=== PATIENT | female | born 2000 | race Caucasian/White ===

== ENCOUNTER 2019-06-19 09:37 | Emergency (ER) | payer BC ==
[2019-06-19 10:24] VITALS: BP 109/68
--- NOTE | 2019-06-19 10:41 | UC ---
Upper Extremity HPI - HPI Summary HPI Summary: 19-year-old female comes in with a chief complaint of left wrist and elbow pain. Started 2 days ago with wrist pain. Now it extends into the left elbow. Feels a tingling sensation in the left fourth and fifth fingers. Has pain in the lateral aspect of the left elbow. Denies any numbness or tingling in the first second and third fingers. Feels like her wrist extension is weaker than her wrist flexion. No known trauma patient is right-handed. This happened in the past but it usually lasts a shorter period of time. Denies any repetitive motion activities that she can think of. - History of Current Complaint Chief Complaint: UCUpperExtremity Stated Complaint: LEFT ARM PAIN Time Seen by Provider: 06/19/19 10:14 Hx Last Menstrual Period: 06/07/19 Pain Intensity: 6 - Allergies/Home Medications Allergies/Adverse Reactions: Allergies Allergy/AdvReac Type Severity Reaction Status Date / Time No Known Allergies Allergy Verified 06/19/19 10:13 Home Medications: Home Medications Norethindrone-E.estradiol-Iron [Taytulla 1 mg-20 Mcg Capsule] 1 mg PO DAILY 08/07 [History Confirmed 06/19/19] PMH/Surg Hx/FS Hx/Imm Hx Previously Healthy: Yes - Surgical History Surgical History: None - Family History Known Family History: Positive: Non-Contributory - Social History Alcohol Use: Occasionally Substance Use Type: None Smoking Status (MU): Never Smoked Tobacco Review of Systems All Other Systems Reviewed And Are Negative: Yes Constitutional: Positive: Negative Skin: Positive: Negative Eyes: Positive: Negative ENT: Positive: Negative Respiratory: Positive: Negative Cardiovascular: Positive: Negative Gastrointestinal: Positive: Negative Motor: Positive: Other - see hpi Neurovascular: Positive: Other - see hpi Musculoskeletal: Positive: Other: - see hpi Neurological: Positive: Other - see hpi Psychological: Positive: Negative Is Patient Immunocompromised?: No Physical Exam Triage Information Reviewed: Yes Appearance: Well-Appearing, No Pain Distress, Well-Nourished Vital Signs: Initial Vital Signs Temp 98.3 F 06/19/19 10:15 Pulse 85 06/19/19 10:15 Resp 18 06/19/19 10:15 BP 109/68 06/19/19 10:15 Pulse Ox 99 06/19/19 10:15 Vital Signs Reviewed: Yes Eye Exam: Normal Eyes: Positive: Conjunctiva Clear Neck: Positive: Supple Respiratory: Positive: No respiratory distress Musculoskeletal: Positive: Other: - Tender to palpation left wrist. Also tender on the lateral aspect of the left elbow. Elbow wrists fingers have full range of motion. On examination wrist extension is slightly less strong than wrist flexion. Finger abduction is normal. Normal sensation on exam patient reports a tingling sensation in the fifth finger. Normal capillary refill normal radial pulse. Elbow has full range of motion full-strength. Shoulder has full range of motion full-strength. Neurological: Positive: Alert Psychological: Positive: Age Appropriate Behavior Skin Exam: Normal Upper Extremity Course/Dx - Course Course Of Treatment: Director Of Market Intelligence: Jarvis Rodriguez ([id number]) Controls Design Engineer: HAL (HAL) Report Date: 06/19/2019 11:39:00 Report Status: Final Start of Report Content Patient Name: JAZ WEBSTER Medical Record#: [id number] Ordering Physician: Sunny Moran MD Acct.#: [id number] : 09/1999 Age: 19 Sex: F Location: [facility] Exam Date: 06/19/19 1034 ADM Status: REG ER Order Information: WRIST LEFT 3+ VWS Accession Number: [id number] CPT: 78544 Clinical history: Atraumatic pain. COMPARISON: None. TECHNIQUE: 3 radiographic views of the left wrist were obtained. FINDINGS: The soft tissues are unremarkable. The bone mineralization is within normal limits. No fracture is identified. Anatomic alignment is maintained. The joint spaces are preserved. IMPRESSION: No fracture identified. <Electronically signed by Jarvis Rodriguez MD in OV > 06/19/191135 Dictated By: Jarvis Rodriguez MD Dictated Date/Time: 06/19/191134 Transcribed Date/Time: 06/19/191134 Copy to: CC:No Primary Care Phys,NOPCP ; Sunny Moran MD Imaging - [facility] [address] [place] [address] ph [phone]) ph ) ph ([phone]) End of Report Content Director Of Market Intelligence: Jarvis Rodriguez, ([id number]) Controls Design Engineer: HAL, (NUANCE) Report Date: 06/19/2019 11:38:00 Report Status: Final Start of Report Content Patient Name: JAZ WEBSTER Medical Record#: [id number] Ordering Physician: Sunny Moran MD Acct.#: [id number] : 09/1999 Age: 19 Sex: F Location: [facility] Exam Date: 06/19/19 1034 ADM Status: REG ER Order Information: ELBOW LEFT 3+VWS Accession Number: [id number] CPT: 36910 INDICATION: Left elbow pain. TECHNIQUE: 4 views of the left elbow were obtained. FINDINGS: The soft tissues are unremarkable. The bone mineralization is within normal limits. No fracture is identified. Anatomic alignment is maintained. The joint spaces are preserved. IMPRESSION: No fracture identified. _ <Electronically signed by Jarvis Rodriguez MD in OV> 06/19/19 113 Dictated By: Jarvis Rodriguez MD Dictated Date/Time: 06/19/19 113 Transcribed Date/Time: 1133 Copy to: CC:No Primary Care Phys,NOPCP ; Sunny Moran MD Imaging - [facility] - [facility] [address] [address] ph ([phone]) ph ([phone]) ph ([phone]) End of Report Content ========= I discussed the x-rays with the patient. Patient's symptoms are most consistent with an ulnar neuropathy with constriction either at the wrist or the left elbow. Patient placed in a cock-up splint by nursing patient neurovascular intact after placement of the cock-up splint. Patient also ice the wrist and the elbow and take ibuprofen and follow up with either orthopedics or sports medicine. - Differential Dx/Diagnosis Provider Diagnosis: Left elbow pain, Left wrist pain, Ulnar neuropathy of left upper extremity Discharge ED - Sign-Out/Discharge Documenting (check all that apply): Patient Departure All imaging exams completed and their final reports reviewed: Yes - Discharge Plan Condition: Stable Disposition: HOME Patient Education Materials: Cubital Tunnel Syndrome (ED) Referrals: Marson,Brandon, MD [Medical Doctor] - [facility] [Provider Group] Additional Instructions: FOLLOW UP WITH DR CARBALLO, ORTHOPEDICS, OR SPORTS MEDICINE. Wear the wrist splint as needed if helpful. Apply ice to the elbow and the wrist if helpful. Take ibuprofen 600 mg 3 times a day. GET REEVALUATED SOONER IF NOT IMPROVING OR WORSE OR ANY QUESTIONS OR CONCERNS. - Billing Disposition and Condition Condition: STABLE Disposition: Home
== END 2019-06-19 11:35 | disposition home or self-care (01) ==
LOC: UCCORT 09:37
DX: M25.522 Pain in left elbow (principal); M25.532 Pain in left wrist; G56.82 Other specified mononeuropathies of left upper limb
CPT/HCPCS: 99202; G0463